=== PATIENT | male | born 1965 | race Two or more races ===

== ENCOUNTER 2024-11-01 13:12 | Inpatient (IN) | payer OTHER ==
[2024-11-01 13:34] VITALS: BMI 30.4
[2024-11-01] MEDS ORDERED: guaiFENesin 600 MG TABLET.ER (FP) PO PRN (14:30)
[2024-11-01] MEDS ORDERED: BENZONATATE 200 MG CAPSULE PO PRN (14:30)
[2024-11-01] MEDS ORDERED: LOPERAMIDE HCL 2 MG CAPSULE PO PRN (14:30)
[2024-11-01] MEDS ORDERED: POLYETHYLENE GLYCOL (HEALTHYLAX) 3350 17 GM PACKET PO PRN (14:30)
[2024-11-01] MEDS ORDERED: NICOTINE POLACRILEX 2 MG GUM BUC PRN (14:30)
[2024-11-01] MEDS ORDERED: ACETAMINOPHEN 325 MG TABLET (FP) PO PRN (14:30)
[2024-11-01] MEDS ORDERED: MAGNESIUM HYDROX 2400MG/30ML ORAL SUSPENSION 30 ML CUP PO PRN (14:30)
[2024-11-01] MEDS ORDERED: IBUPROFEN 400 MG TABLET (FP) PO PRN (14:30)
[2024-11-01] MEDS ORDERED: BENZOCAINE/MENTHOL (CHLORASEPTIC ) LOZENGE MM PRN (14:30)
[2024-11-01] MEDS ORDERED: NALOXONE (NARCAN) HCL 4 MG/0.1 ML SPRAY NS PRN (14:30)
[2024-11-01] MEDS: PRENATAL VITAMINS W/ FOLIC ACID TABLET (FP) PO SCH (16:00)
[2024-11-01] MEDS ORDERED: PRENATAL VITAMINS W/ FOLIC ACID TABLET (FP) PO ONE (16:16)
[2024-11-01] MEDS: MELATONIN 5 MG TABLETS PO SCH (22:04)
[2024-11-01] MEDS: THIAMINE 100 MG TABLET PO SCH (22:04)
[2024-11-01 23:12] LABS: EPI CELLS 2 /uL (0-25.1); HYALINE CASTS 0 /uL (0-3.1); PH,URINE 5.5 (5.0-8.0); URINE APPEARANCE TURBID; URINE BACTERIA 6 /uL (0-1359); URINE BILIRUBIN NEGATIVE (NEGATIVE); URINE COLOR YELLOW; URINE GLUCOSE (UA) NEGATIVE (NEGATIVE); URINE KETONE TRACE (NEGATIVE); URINE LEUK ESTERASE NEGATIVE (NEGATIVE); URINE NITRITE NEGATIVE (NEGATIVE); URINE PROTEIN NEGATIVE (NEGATIVE); URINE RBC 3 /uL (0-23.9); URINE UROBILINOGEN 0.2 mg/dL (0.2-1.0); URINE WBC 5 /uL (0-25.8)
[2024-11-02 09:34] LABS: POTASSIUM 4.4 mmol/L (3.5-5.1)
[2024-11-02 09:37] LABS: HEMATOCRIT 44.5 % (35.4-49); HEMOGLOBIN 14.6 GM/dL (11.7-16.9); MCH 27.8 pg (25.7-33.7); MCHC 32.9 g/dl (32.0-35.9); MEAN CELL VOLUME 84.4 fl (80-96); MEAN PLT VOLUME 7.6 fl (7.5-11.1); PLATELET COUNT 288 10^3/uL (134-434); RBC 5.27 M/mm3 (4.00-5.60); RDW 14.6 % (11.9-15.9); WHITE BLOOD COUNT 8.2 K/mm3 (4.0-10.0)
[2024-11-02 09:50] LABS: CALCIUM 8.9 mg/dL (8.5-10.1)
[2024-11-02 09:51] LABS: ALBUMIN 3.4 g/dl (3.4-5.0); BLOOD UREA NITROGEN 16.3 mg/dL (7-18)
[2024-11-02 09:52] LABS: BILIRUBIN,TOTAL 0.5 mg/dL (0.2-1)
[2024-11-02 09:53] LABS: TOT PROT 6.9 g/dl (6.4-8.2)
[2024-11-02] MEDS: hydrOXYzine PAMOATE 25 MG CAPSULE (FP) PO PRN (21:06)
[2024-11-04] MEDS: NALTREXONE HCL 50 MG TABLET PO SCH (09:23)
[2024-11-05] MEDS: IBUPROFEN 600 MG TABLET (FP) PO PRN (10:09)
[2024-11-06] MEDS ORDERED: FAMOTIDINE 20 MG TABLET PO PRN (12:50)
[2024-11-06] MEDS: amLODIPine BESYLATE 5 MG TABLET (FP) PO SCH (13:27)
[2024-11-07] MEDS: cloNIDine HCL 0.1 MG TABLET PO PRN (09:06)
[2024-11-07 11:20] LABS: CHOLESTEROL 196 mg/dL (50-200)
[2024-11-07 11:22] LABS: LDL CHOLESTEROL (ONLY SJRH) 136 mg/dL (5-100)
[2024-11-07 11:24] LABS: HDL CHOLESTEROL 44 mg/dL (40-60)
[2024-11-07] MEDS: MAG HYDROX/AL HYDROX/SIMETH 30 ML UNIT-DOSE CUP PO PRN (22:00)
[2024-11-08] MEDS: LISINOPRIL 20 MG TABLET PO SCH (09:19)
[2024-11-09] MEDS: amLODIPine BESYLATE 5 MG TABLET (FP) PO SCH (09:56)
[2024-11-09] MEDS ORDERED: amLODIPine BESYLATE 5 MG TABLET (FP) PO SCH (10:00)
[2024-11-11] MEDS: NALTREXONE HCL 50 MG TABLET PO SCH (12:27)
[2024-11-14 09:07] VITALS: RESP 18
[2024-11-15 08:45] VITALS: BP 126/81; PULSE 90; TEMP 98.2
== END 2024-11-15 09:28 | disposition home or self-care (01) | DRG 895 ==
LOC: YASAS 13:12 → Y3NR 20:28 → Y3E 11-04 11:03
PROVIDERS: ADMIT Psychiatry & Neurology Pain Medicine; ATTEND Psychiatry & Neurology Pain Medicine
PROC: HZ42ZZZ Group Counseling for Substance Abuse Treatment, Cognitive-Behavioral (ICD-10-PCS; principal; 2024-11-01)
DX: F10.20 Alcohol dependence, uncomplicated (principal); F14.20 Cocaine dependence, uncomplicated; F11.10 Opioid abuse, uncomplicated; F17.210 Nicotine dependence, cigarettes, uncomplicated; E78.5 Hyperlipidemia, unspecified; I10 Essential (primary) hypertension; Z86.59 Personal history of other mental and behavioral disorders
CPT/HCPCS: 36415; 71046-TC-FY; 80053; 80061; 80305; 81003; 85027; 86780; 86803; 87522; 87811; 93005; 93010